=== PATIENT | male | born 1950 | race Caucasian/White ===

== ENCOUNTER 2023-01-16 11:51 | Inpatient (IN) | payer BC ==
[~2023-01-16] VITALS: Ht 172.7 cm; Wt 68.7 kg
[2023-01-16] MEDS ORDERED: NITROGLYCERIN 0.4 MG SL TAB SL PRN (12:45)
[2023-01-16] MEDS ORDERED: ONDANSETRON HCL 4 MG/2 ML VIAL IV PRN ×2 (12:45→17:00)
[2023-01-16] MEDS ORDERED: MORPHINE SULFATE INJ 2 MG/ml SYRG IV PRN (12:45)
[2023-01-16 12:54] VITALS: PULSE 63; RESP 16; O2SAT 95
[2023-01-16] MEDS: MORPHINE SULFATE INJ 2 MG/ml SYRG IV PRN (13:49)
[2023-01-16] MEDS: SODIUM CHLORIDE 0.9% 1,000 ML IV SCH ×2 (13:51→21:05)
[2023-01-16] MEDS ORDERED: ONDANSETRON HCL 4 MG/2 ML VIAL IV ONE (14:22)
[2023-01-16] MEDS ORDERED: KETAMINE 50mg/ML 10ml Vial (500mg/10ml) IV ONE (14:22)
[2023-01-16] MEDS ORDERED: ceFAZolin 1GM/50ML 100 ML IV ONE (14:59)
[2023-01-16] MEDS ORDERED: LIDOCAINE W/ EPINEPHRINE 1% 20ML VIAL ONE (14:59)
[2023-01-16] MEDS ORDERED: BUPIVACAINE 0.25% INJ 50ML VIAL ONE (15:00)
[2023-01-16] MEDS ORDERED: SUGAMMADEX 200mg/2ml Vial (100MG/ML) IV ONE (15:11)
[2023-01-16] MEDS ORDERED: HYDROmorphone HCL 2 MG/ML VL/or syr ONE (15:11)
[2023-01-16] MEDS ORDERED: MIDAZOLAM HCL 2MG/2ML 2ml VIAL (1mg/ml) ONE (15:11)
[2023-01-16] MEDS ORDERED: fentaNYL CITRATE 100 MCG/2 ML VL ONE (15:11)
[2023-01-16] MEDS ORDERED: DexAMETHasone SOD PHOS 10MG/1ML VIAL INJ ONE (15:12)
[2023-01-16] MEDS ORDERED: ROCURONIUM 10MG/ML 10ML VIAL IV ONE (15:12)
[2023-01-16] MEDS ORDERED: PROPOFOL 10 MG/ML 20 ML IV ONE (15:12)
[2023-01-16] MEDS ORDERED: LIDOCAINE 2% (LOCAL ANESTH.) PF 5ml SDV ONE (15:12)
[2023-01-16] MEDS ORDERED: ePHEDrine SULFATE 50 MG/ML AMP ONE (15:12)
[2023-01-16] MEDS ORDERED: GLYCOPYRROLATE 0.2 MG/ML 1ML VIAL ONE (15:12)
[2023-01-16] MEDS ORDERED: KETOROLAC TROMETH 30 MG/ML 1ML VIAL ONE (15:12)
[2023-01-16] MEDS ORDERED: MEPERIDINE HCL (25 MG/ML) 1ML VIAL ONE (16:34)
[2023-01-16 16:53] VITALS: O2SAT 97
[2023-01-16] MEDS ORDERED: ACCU-CHEK COMFORT CURVE STRIP VI ONE (17:00)
[2023-01-16] MEDS ORDERED: HYDROmorphone HCL 2 MG/ML VL/or syr IV PRN (17:00)
[2023-01-16] MEDS: PIPERACILLIN-TAZOB 3.375GM 100 ML IV SCH (18:50)
[2023-01-16 20:00] VITALS: PULSE 67
[2023-01-16] MEDS ORDERED: METF-370 PO (20:38)
[2023-01-16] MEDS ORDERED: METO-158 PO (20:38)
[2023-01-16] MEDS ORDERED: HYDR25TA5 PO (20:38)
[2023-01-16] MEDS ORDERED: ATOR20TA50 PO (20:38)
[2023-01-16] MEDS ORDERED: LEVO125T7 PO (20:38)
[2023-01-16] MEDS: METOPROLOL TARTRATE 25 MG TAB PO SCH (21:44)
[2023-01-16 21:48] VITALS: BP 157/68; PULSE 66; RESP 17; TEMP 98.5; O2SAT 100
[2023-01-17] VITALS (7 sets, daily range): BP systolic 122–187; BP diastolic 59–82; PULSE 56–125; RESP 16–18; TEMP 97.9–98.5; O2SAT 82–99
[2023-01-17] MEDS: PIPERACILLIN-TAZOB 3.375GM 100 ML IV SCH ×4 (00:24→18:05)
[2023-01-17] MEDS: SODIUM CHLORIDE 0.9% 1,000 ML IV SCH ×3 (05:25→22:05)
[2023-01-17 06:11] LABS: Basophils # (auto) 0 10 ^3/uL (0-0.2); Basophils % (auto) 0.1 % (0.0-2.0); Eosinophils # (auto) 0 10 ^3/uL (0-0.8); Hematocrit 37.1 % (41.0-53.0); Hemoglobin 12.6 g/dL (13.5-17.5); Lymphocytes # (auto) 0.7 10 ^3/uL (0.4-5.4); Lymphocytes % (auto) 5.4 % (10.0-50.0); Mean Corpuscular Hemoglobin 30.7 pg (28.0-32.0); Mean Corpuscular Hgb Conc. 33.9 g/dL (32.0-36.0); Mean Corpuscular Volume 90.6 fL (80.0-100.0); Monocytes % (auto) 7.7 % (0.0-12.0); Neutrophils # (auto) 11.3 10 ^3/uL (1.6-8.6); Neutrophils % (auto) 86.8 % (37.0-80.0); Red Cell Distribution Width 13.9 % (11.8-14.3)
[2023-01-17] MEDS: METOPROLOL TARTRATE 25 MG TAB PO SCH ×2 (09:44→22:16)
[2023-01-17] MEDS: MORPHINE SULFATE INJ 2 MG/ml SYRG IV PRN (09:45)
[2023-01-17] MEDS: ENOXAPARIN SOD 40 MG/0.4 ML SYRINGE SC SCH (09:45)
[2023-01-17] MEDS: HYDROmorphone HCL 2 MG/ML VL/or syr IV PRN ×2 (14:04→20:05)
[2023-01-17] MEDS: METOPROLOL TARTRATE 1MG/1ML-5ML VIAL IV PRN (14:05)
[2023-01-17] MEDS: hydrALAZINE HCL 20 MG/ML VL IV PRN (17:57)
[2023-01-18] MEDS: PIPERACILLIN-TAZOB 3.375GM 100 ML IV SCH ×4 (00:59→18:25)
[2023-01-18] MEDS: hydrALAZINE HCL 20 MG/ML VL IV PRN (01:00)
[2023-01-18] MEDS: HYDROmorphone HCL 2 MG/ML VL/or syr IV PRN ×3 (01:23→14:47)
[2023-01-18 05:00] VITALS: BP 151/86; PULSE 128; RESP 22; TEMP 97.8; O2SAT 99
[2023-01-18] MEDS: METOPROLOL TARTRATE 1MG/1ML-5ML VIAL IV PRN (05:48)
[2023-01-18] MEDS: SODIUM CHLORIDE 0.9% 1,000 ML IV SCH ×2 (06:25→14:45)
[2023-01-18 08:00] VITALS: PULSE 116; PULSE 80; RESP 16; O2SAT 97
[2023-01-18 08:45] VITALS: BP 164/87; PULSE 80; RESP 16; TEMP 98; O2SAT 97
[2023-01-18] MEDS: ENOXAPARIN SOD 40 MG/0.4 ML SYRINGE SC SCH (10:56)
[2023-01-18] MEDS: METOPROLOL TARTRATE 25 MG TAB PO SCH ×2 (11:00→22:49)
[2023-01-18 17:00] VITALS: BP 145/76; PULSE 64; RESP 16; TEMP 97.9; O2SAT 95
[2023-01-18 20:00] VITALS: PULSE 54; PULSE 80; RESP 16; O2SAT 97
[2023-01-19] VITALS (7 sets, daily range): BP systolic 104–180; BP diastolic 69–80; PULSE 53–67; RESP 16–18; TEMP 97.4–98.9; O2SAT 94–98
[2023-01-19] MEDS: PIPERACILLIN-TAZOB 3.375GM 100 ML IV SCH ×3 (00:28→18:10)
[2023-01-19] MEDS: HYDROmorphone HCL 2 MG/ML VL/or syr IV PRN ×3 (00:47→18:10)
[2023-01-19] MEDS: SODIUM CHLORIDE 0.9% 1,000 ML IV SCH ×3 (06:20→15:45)
[2023-01-19] MEDS: METOPROLOL TARTRATE 25 MG TAB PO SCH ×2 (08:59→22:04)
[2023-01-19] MEDS: ENOXAPARIN SOD 40 MG/0.4 ML SYRINGE SC SCH (09:00)
[2023-01-19] MEDS: METOPROLOL TARTRATE 1MG/1ML-5ML VIAL IV PRN ×2 (11:56→18:10)
[2023-01-19] MEDS ORDERED: CLINIMIX PER PHARMACY 0 ML IV SCH (14:00)
[2023-01-19 15:03] LABS: Magnesium 1.7 mg/dL (1.6-2.6)
[2023-01-19 15:05] LABS: Phosphorus 1.8 mg/dL (2.4-5.1)
[2023-01-19] MEDS: hydrALAZINE HCL 20 MG/ML VL IV PRN ×2 (15:17→23:29)
[2023-01-19 17:01] LABS: Chloride 109 mmol/L (98-107); Sodium 141 mmol/L (136-145)
[2023-01-19 17:02] LABS: Anion Gap 9 (5-15); Calcium 8.6 mg/dL (8.7-10.4); Carbon Dioxide 23 mmol/L (20-30)
[2023-01-19 17:07] LABS: BUN/Creatinine Ratio 20.6 (10.0-20.0); Blood Urea Nitrogen 14 mg/dL (9-23); Glucose 82 mg/dL (74-106)
[2023-01-19] MEDS ORDERED: AMINO ACID INFUSION IN D10W 1,000 ML IV NR (20:00)
[2023-01-20] MEDS ORDERED: ACCU-CHEK COMFORT CURVE STRIP VI SCH
[2023-01-20] MEDS ORDERED: InsuLIN REG 1unit/0.01ml Soln (100units/ml) SC SCH
[2023-01-20] MEDS ORDERED: DEXTROSE (50%) 50ML SYRG IV SCH
[2023-01-20] MEDS: HYDROmorphone HCL 2 MG/ML VL/or syr IV PRN ×2 (02:38→12:30)
[2023-01-20] MEDS: SODIUM CHLORIDE 0.9% 1,000 ML IV SCH ×3 (02:39→16:45)
[2023-01-20 05:00] VITALS: BP 175/72; PULSE 60; RESP 19; TEMP 98.4; O2SAT 95
[2023-01-20] MEDS: hydrALAZINE HCL 20 MG/ML VL IV PRN ×2 (05:21→15:37)
[2023-01-20] MEDS: PIPERACILLIN-TAZOB 3.375GM 100 ML IV SCH (06:30)
[2023-01-20 08:00] VITALS: PULSE 58; PULSE 67; RESP 20; O2SAT 94
[2023-01-20 09:00] VITALS: BP 157/77; PULSE 54; RESP 20; TEMP 97.6; O2SAT 94
[2023-01-20] MEDS: ENOXAPARIN SOD 40 MG/0.4 ML SYRINGE SC SCH (09:23)
[2023-01-20] MEDS: METOPROLOL TARTRATE 25 MG TAB PO SCH (09:24)
[2023-01-20] MEDS ORDERED: NALO4SPR2 (11:42)
[2023-01-20] MEDS ORDERED: DOCU-94 PO (11:42)
[2023-01-20] MEDS ORDERED: HYDR-4902 PO (11:42)
[2023-01-20 13:00] VITALS: PULSE 61; RESP 20; TEMP 97.5; O2SAT 95
[2023-01-20 16:19] VITALS: BP 168/104; PULSE 61; RESP 20; TEMP 97.5; O2SAT 95
== END 2023-01-20 17:12 | disposition home or self-care (01) | DRG 355 ==
LOC: ER 11:51 → EDBD 11:51 → TELE 12:37 → TELE-EAST 17:52 → TELE-WESTW 18:45
PROVIDERS: ADMIT Internal Medicine; ATTEND Internal Medicine
PROC: 0D9670Z Drainage of Stomach with Drainage Device, Via Natural or Artificial Opening (ICD-10-PCS; 2023-01-16)
PROC: 0WQF0ZZ Repair Abdominal Wall, Open Approach (ICD-10-PCS; principal; 2023-01-16 15:22)
DX: K43.0 Incisional hernia with obstruction, without gangrene (principal); N13.9 Obstructive and reflux uropathy, unspecified; E11.9 Type 2 diabetes mellitus without complications; E03.9 Hypothyroidism, unspecified; I10 Essential (primary) hypertension; I25.10 Atherosclerotic heart disease of native coronary artery without angina pectoris; Z87.442 Personal history of urinary calculi; Z87.891 Personal history of nicotine dependence; Z95.1 Presence of aortocoronary bypass graft
CPT/HCPCS: 36415; 80048; 82962; 83735; 84100; 85025; 87081; 96374; 96375; 97110; 97116; 97163; 97530; G0378; J0690; J1100; J1885; J2001; J2250; J2405; J2543; J2704; J3490

== ENCOUNTER 2023-10-30 12:19 | Inpatient (IN) | payer BC ==
[~2023-10-30] VITALS: Ht 172.7 cm; Wt 62.1 kg
[~2023-10-30 12:19] MED LIST: ATOR20TA50 PO; DOCU-94 PO; HYDR-4902 PO; HYDR25TA5 PO; LEVO125T7 PO; METF-370 PO; METO-158 PO; NALO4SPR2
[2023-10-30 12:57] LABS: Urine Bacteria FEW /hpf (None Seen); Urine Blood 3+ /uL (Negative); Urine Clarity Clear (Clear); Urine Color Colorless (Yellow); Urine Protein, UAD 1+ (Negative); Urine Specific Gravity 1.006 (1.001-1.035); Urine Urobilinogen Normal (Negative); Urine WBC 32 /hpf (0 - 3)
[2023-10-30] MEDS: cefTRIAXone 1GM/50ML D5W 50 ML IV ONE (13:50)
[2023-10-30] MEDS: hydrALAZINE HCL 20 MG/ML VL IV ONE ×4 (13:59→14:59)
[2023-10-30 14:02] LABS: Basophils # (auto) 0.1 10 ^3/uL (0-0.2); Basophils % (auto) 0.8 % (0.0-2.0); Eosinophils # (auto) 0.1 10 ^3/uL (0-0.8); Hematocrit 43.7 % (41.0-53.0); Hemoglobin 14.5 g/dL (13.5-17.5); Lymphocytes # (auto) 1.7 10 ^3/uL (0.4-5.4); Lymphocytes % (auto) 21.2 % (10.0-50.0); Mean Corpuscular Hemoglobin 31.2 pg (28.0-32.0); Mean Corpuscular Hgb Conc. 33.1 g/dL (32.0-36.0); Mean Corpuscular Volume 94.1 fL (80.0-100.0); Monocytes # (auto) 0.7 10 ^3/uL (0-1.3); Neutrophils # (auto) 5.3 10 ^3/uL (1.6-8.6); Nucleated Red Blood Cells % 0.1 %; Red Blood Cells 4.65 10^6/uL (4.5-5.90); Red Cell Distribution Width 14.1 % (11.8-14.3); White Blood Cell 7.9 10^3/uL (4.4-10.8)
[2023-10-30 14:16] LABS: Alanine Aminotransferase 34 U/L (7-40); Albumin 4.2 g/dL (3.2-4.8); Alkaline Phosphatase 79 U/L (46-116); Anion Gap 7 (5-15); Aspartate Aminotransferase 25 U/L (13-40); BUN/Creatinine Ratio 11.1 (10.0-20.0); Bilirubin, Total 0.8 mg/dL (0.2-1.0); Blood Urea Nitrogen 10 mg/dL (9-23); Calcium 10.3 mg/dL (8.7-10.4); Carbon Dioxide 25 mmol/L (20-30); Chloride 108 mmol/L (98-107); Glucose 117 mg/dL (74-106); INR 1.06 (0.9-1.15); Partial Thromboplastin Time 27.3 SEC (24.5-34.5); Prothrombin Time 11.2 sec (9.3-11.8); Sodium 140 mmol/L (136-145); Total Protein 6.5 g/dL (5.7-8.2)
[2023-10-30] MEDS ORDERED: hydrALAZINE HCL 20 MG/ML VL IV ONE (15:00)
[2023-10-30 16:56] VITALS: PULSE 55; RESP 16; O2SAT 97
[2023-10-30 19:30] VITALS: PULSE 55; RESP 18; O2SAT 95
[2023-10-30] MEDS ORDERED: ONDANSETRON HCL 4 MG/2 ML VIAL IV PRN (21:30)
[2023-10-30] MEDS ORDERED: DEXTROSE (50%) 50ML SYRG IV PRN (21:30)
[2023-10-30] MEDS ORDERED: MORPHINE SULFATE INJ 2 MG/ml SYRG IV PRN ×2 (21:30)
[2023-10-30] MEDS ORDERED: DOCUSATE SOD 100 MG CAP PO PRN (21:30)
[2023-10-30] MEDS ORDERED: HYDROcodone-ACET 5/325MG TAB PO PRN (21:30)
[2023-10-30] MEDS ORDERED: NITROGLYCERIN 0.4 MG SL TAB SL PRN (21:30)
[2023-10-30] MEDS ORDERED: ACETAMINOPHEN 325 MG TAB PO PRN (21:30)
[2023-10-30] MEDS: ATORVASTATIN 20 MG TAB PO SCH (22:00)
[2023-10-30] MEDS: ACCU-CHEK COMFORT CURVE STRIP VI SCH (22:00)
[2023-10-30] MEDS: InsuLIN REG 1unit/0.01ml Soln (100units/ml) SC SCH (22:00)
[2023-10-30] MEDS: hydrALAZINE HCL 20 MG/ML VL IV PRN (22:50)
[2023-10-31] VITALS (8 sets, daily range): BP systolic 124–199; BP diastolic 62–83; PULSE 40–54; RESP 16–19; TEMP 97.6–97.9; O2SAT 96–98
[2023-10-31] MEDS: cloNIDine HCL 0.1 MG TAB PO PRN (00:54)
[2023-10-31 07:12] LABS: Basophils # (auto) 0.1 10 ^3/uL (0-0.2); Basophils % (auto) 0.8 % (0.0-2.0); Eosinophils # (auto) 0 10 ^3/uL (0-0.8); Eosinophils % (auto) 0.4 % (0.0-7.0); Hematocrit 44.1 % (41.0-53.0); Hemoglobin 14.7 g/dL (13.5-17.5); Lymphocytes # (auto) 1.5 10 ^3/uL (0.4-5.4); Lymphocytes % (auto) 18.2 % (10.0-50.0); Mean Corpuscular Hemoglobin 31.2 pg (28.0-32.0); Mean Corpuscular Hgb Conc. 33.3 g/dL (32.0-36.0); Mean Corpuscular Volume 93.9 fL (80.0-100.0); Monocytes # (auto) 0.7 10 ^3/uL (0-1.3); Monocytes % (auto) 8.6 % (0.0-12.0); Nucleated Red Blood Cells % 0.1 %; White Blood Cell 8.3 10^3/uL (4.4-10.8)
[2023-10-31 07:23] LABS: Anion Gap 7 (5-15); Carbon Dioxide 26 mmol/L (20-30); Chloride 107 mmol/L (98-107); Potassium 4.1 mmol/L (3.5-5.1); Sodium 140 mmol/L (136-145)
[2023-10-31 07:24] LABS: Calcium 9.9 mg/dL (8.5-10.1)
[2023-10-31 07:29] LABS: BUN/Creatinine Ratio 12.3 (10.0-20.0); Blood Urea Nitrogen 10 mg/dL (9-23); Glucose 100 mg/dL (74-106)
[2023-10-31] MEDS: LEVOTHYROXINE SODIUM 50 MCG TAB PO SCH (08:11)
[2023-10-31] MEDS ORDERED: LOSARTAN POTASSIUM 50 MG TAB PO SCH (10:00)
[2023-10-31] MEDS: LISINOPRIL 20 MG TAB PO SCH (10:07)
[2023-10-31] MEDS: InsuLIN REG 1unit/0.01ml Soln (100units/ml) SC SCH (11:12)
[2023-10-31] MEDS: ACCU-CHEK COMFORT CURVE STRIP VI SCH (11:12)
[2023-10-31] MEDS ORDERED: LOSA100T33 PO (17:01)
[2023-10-31] MEDS ORDERED: METF-370 PO (17:01)
[2023-10-31] MEDS ORDERED: METO-158 PO (17:01)
[2023-10-31] MEDS ORDERED: TAMS-35 PO (17:14)
[2023-10-31] MEDS: TAMSULOSIN HYDROCHLORIDE 0.4 MG CAP PO SCH (17:38)
[2023-11-01] MEDS ORDERED: LEVOTHYROXINE SODIUM 50 MCG TAB PO SCH (07:00)
== END 2023-10-31 18:40 | disposition home or self-care (01) | DRG 694 ==
LOC: ER 12:19 → TELE-E-ADS 21:58 → TELE 21:58 → TELE-E-ADS 23:43
PROVIDERS: ADMIT Nurse Practitioner Family; ATTEND Nurse Practitioner Family
DX: N13.2 Hydronephrosis with renal and ureteral calculous obstruction (principal); E11.9 Type 2 diabetes mellitus without complications; I16.0 Hypertensive urgency; Z96.652 Presence of left artificial knee joint; R79.89 Other specified abnormal findings of blood chemistry; R00.1 Bradycardia, unspecified; I25.10 Atherosclerotic heart disease of native coronary artery without angina pectoris; I49.3 Ventricular premature depolarization; Z95.1 Presence of aortocoronary bypass graft; Z87.442 Personal history of urinary calculi; Z79.899 Other long term (current) drug therapy; Z79.84 Long term (current) use of oral hypoglycemic drugs; Z87.891 Personal history of nicotine dependence
CPT/HCPCS: 36415; 74176; 80048; 80053; 81001; 82962; 83605; 84443; 84484; 85025; 85610; 85730; 86850; 86900; 86901; 93005; 93306; 99291; G0378